=== PATIENT | male | born 1955 | race American Indian/Alaskan Native ===

== ENCOUNTER 2018-12-17 11:52 | Emergency (ER) | payer SELFPAY ==
[2018-12-17 11:59] VITALS: BP 117/75
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
--- NOTE | 2018-12-17 12:34 | XRay Report ---
LUMBAR SPINE 3 VIEWS INDICATION / CLINICAL INFORMATION: low back pain. COMPARISON: None available. FINDINGS: VERTEBRAE: No acute fracture. No significant malalignment. Posterior L5-S1 fusion with interbody spac er. Fusion appears solid. DISC SPACES / FACET JOINTS:Other disc spaces appear normal. Facet spondylosis at L3-4 and L4-5. PARASPINAL SOFT TISSUES:No significant abnormality. ADDITIONAL FINDINGS: None. Signer Name: Soo Boucher MD Signed: 12/17/2018 12:30 PM Workstation Name: [id number]
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
== END 2018-12-17 14:19 | disposition home or self-care (01) ==
LOC: ED 11:52
DX: S39.012A Strain of muscle, fascia and tendon of lower back, initial encounter (principal); Z98.890 Other specified postprocedural states; V49.49XA Driver injured in collision with other motor vehicles in traffic accident, initial encounter; Y93.89 Activity, other specified; Y92.89 Other specified places as the place of occurrence of the external cause; Y99.8 Other external cause status
CPT/HCPCS: 72100